=== PATIENT | female | born 1975 | race Caucasian/White ===

== ENCOUNTER 2016-12-18 05:18 | Day surgery (SDC) | payer OTHER ==
[~2016-12-18] VITALS: Ht 154.9 cm; Wt 104.3 kg
--- NOTE | ~2016-12-18 | O ---
[facility] [place] [address] OPERATIVE REPORT Name: DEB GLOVER Room #: DEP [facility] [place] M.R.#: [id number] Admission: 12/18/16 Attend Phys: Dong Feng MD Discharge: 12/18/16 Date of : 77 Report #: [id number] THIS REPORT FOR: //name// CC: Dong SUMNER unknown DATE OF SERVICE: 12/18/2016 PREOPERATIVE DIAGNOSIS: Left knee pain with posttraumatic degenerative chondromalacia and medial meniscus tear. 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 PROCEDURE: Left knee arthroscopy with debridement of extensive arthrofibrosis and debridement of degenerative tear, medial meniscus, and debridement of hypertrophic intercondylar notch with some impingement on previous ACL reconstruction graft. SURGEON: Dong Feng MD. INDICATIONS: This stocky 41-year-old female, has a history of previous left knee injury, which was treated elsewhere with debridement and anterior cruciate ligament reconstruction. She has returned to fairly good function with satisfactory knee stability. However, she has a sense of ongoing knee pain, which has progressed recently. Recent MRI study suggests the ACL is intact, but also suggests significant tearing of the medial meniscus, as well as some generalized chondromalacia. We have elected to go ahead with arthroscopic evaluation and debridement. DESCRIPTION OF PROCEDURE: The patient was taken to the operating room, where she was placed under general anesthesia. Prophylactic intravenous antibiotics were administered. The left knee and leg were meticulously prepped and draped and a thigh tourniquet inflated to 300 mmHg. A lateral suprapatellar inflow cannula was placed, although with some difficulty, as there appeared to be significant arthrofibrosis, making placement of the inflow cannula and inflation of the knee somewhat difficult. Once we got the knee satisfactorily inflated, the arthroscope and a shaver were introduced through parapatellar tendon approaches. That was also somewhat difficult as there seemed to be significant generalized arthrofibrosis in the anterior aspect of the knee. This was confirmed. Once visualization was established. There was rather dense scarring and plica formation over the anterior aspect of the knee with abrading scar over both the medial and femoral condyles. These areas were debrided, allowing better visualization and correction of any ongoing impingement and abrasion in this area. This scarring and arthrofibrosis extended up to the patellofemoral joint, where there was significant dense scarring which was debrided, allowing [facility] [address] [place] [address] OPERATIVE REPORT Name: DEB GLOVER Room #: DEP [facility]#: [id number] Admission: 12/18/16 Attend Phys: Dong Feng MD Discharge: 12/18/16 Date of : 77 Report #: [id number] better visualization. Once satisfactory visualization was accomplished, the anterior cruciate ligament was inspected and found to be intact and functioning nicely. There was, however, significant narrowing of the notch, causing some impingement on the ACL, particularly with knee extension. A limited notch plasty was performed with the shaver, decompressing the bony edges and allowing good visualization of the ACL graft, and eliminating any impingement throughout a full arc of motion. The medial compartment revealed slightly greater chondromalacia of the medial femoral condyle, particularly along the medial margin, where the meniscus was found to be frayed and torn in a rather chronic degenerative fashion. This area of meniscus damage was trimmed and removed, leaving about the outer one-half of the meniscus intact and stable. There was less severe chondromalacia on the medial tibial plateau. There was some loose debris in the posterior medial corner, which was irrigated and evacuated. The lateral compartment reveals similar but less severe chondromalacia and less severe posttraumatic degenerative tearing of the lateral meniscus. These areas were very gently debrided, removing only the inner margin of the meniscus, which was somewhat frayed and irregular and trimming up of few loose and rugged edges of cartilage on the lateral femoral condyle, and the lateral tibial plateau. At this point, the entire knee was copiously irrigated. All excess fluid was evacuated. The knee was then injected with 40 mg of Depo-Medrol, and 20 mL of 0.5% Marcaine with epinephrine. The puncture sites were closed with interrupted nylon suture. Sterile dressing was applied. The patient was awakened and returned to the recovery room in good condition. By: [id number] Dong Feng MD /nt
[~2016-12-18 05:18] MED LIST: RESTASIS1 EACH OPHTHALMIC; TOPAMAX50 MG PO
[2016-12-18 10:00] VITALS: BP 129/83
[2016-12-18 12:40] VITALS: BP 129/83
== END 2016-12-18 13:15 | disposition home or self-care (01) ==
LOC: OR 05:18 → TBA 05:18 → OR 11:03
DX: M23.232 Derangement of other medial meniscus due to old tear or injury, left knee (principal); M94.262 Chondromalacia, left knee; M23.262 Derangement of other lateral meniscus due to old tear or injury, left knee; M25.662 Stiffness of left knee, not elsewhere classified; Z87.891 Personal history of nicotine dependence; Z98.890 Other specified postprocedural states
CPT/HCPCS: 50010; 50101; 50405; 51038; 54170; 56526; 62110; 62900; 70005